=== PATIENT | female | born 1950 | race Caucasian/White ===

== ENCOUNTER → 2017-10-11 | Outpatient (CLI) | payer OTHER | LOC: M.RAD 12:03 | DX: M51.36 Other intervertebral disc degeneration, lumbar region (principal); G89.29 Other chronic pain; M54.2 Cervicalgia; M51.34 Other intervertebral disc degeneration, thoracic region; M12.88 Other specific arthropathies, not elsewhere classified, other specified site; M48.061 Spinal stenosis, lumbar region without neurogenic claudication; M48.03 Spinal stenosis, cervicothoracic region; M85.88 Other specified disorders of bone density and structure, other site ==

== ENCOUNTER → 2018-05-08 | Outpatient (CLI) | payer OTHER | LOC: M.RAD 09:53 | DX: J91.8 Pleural effusion in other conditions classified elsewhere (principal) ==

== ENCOUNTER → 2019-04-02 | Outpatient (CLI) | payer OTHER | LOC: M.RAD 15:12 | DX: E28.39 Other primary ovarian failure (principal); Z78.0 Asymptomatic menopausal state ==

== ENCOUNTER → 2019-04-25 | Outpatient (CLI) | payer OTHER | LOC: M.CT 08:30 | DX: J84.10 Pulmonary fibrosis, unspecified (principal); R91.8 Other nonspecific abnormal finding of lung field ==